=== PATIENT | female | born 1995 | race Caucasian/White ===

== ENCOUNTER → 2023-08-13 14:59 | Outpatient (REF) | payer OTHER, SELFPAY | LOC: MRI 3T 14:59 | PROVIDERS: ATTENDING PHYSICIAN Psychiatry & Neurology Neurology; FAMILY PHYSICIAN Internal Medicine; REFERRING PHYSICIAN Neurological Surgery | DX: R93.89 Abnormal findings on diagnostic imaging of other specified body structures (principal) | CPT/HCPCS: 70553; A9575 ==

== ENCOUNTER → 2023-08-21 09:00 | Outpatient (REF) | payer OTHER, SELFPAY | LOC: DHSLP 09:00 | PROVIDERS: ATTENDING PHYSICIAN Internal Medicine | DX: G47.30 Sleep apnea, unspecified (principal); R06.83 Snoring | CPT/HCPCS: 95800 ==

== ENCOUNTER 2023-08-22 06:34 | Outpatient (RCR) | payer OTHER, SELFPAY | END 2023-08-22 23:59 | disposition home or self-care (01) | LOC: RST 06:34 | PROVIDERS: ATTENDING PHYSICIAN Psychiatry & Neurology Neurology; FAMILY PHYSICIAN Internal Medicine | DX: R41.840 Attention and concentration deficit (principal); R41.841 Cognitive communication deficit; G91.9 Hydrocephalus, unspecified; Z73.6 Limitation of activities due to disability | CPT/HCPCS: 92507; 92523; 97167; 97530; 97537 ==

== ENCOUNTER 2023-09-18 07:06 | Outpatient (RCR) | payer OTHER, SELFPAY | END 2023-09-18 23:59 | disposition home or self-care (01) | LOC: RST 07:06 | PROVIDERS: ATTENDING PHYSICIAN Psychiatry & Neurology Neurology; FAMILY PHYSICIAN Internal Medicine | DX: R41.840 Attention and concentration deficit (principal); R41.841 Cognitive communication deficit; G91.9 Hydrocephalus, unspecified | CPT/HCPCS: 92507; 92523; 97167; 97530; 97537 ==

== ENCOUNTER 2023-10-09 08:04 | Outpatient (RCR) | payer OTHER, SELFPAY | END 2023-10-09 23:59 | disposition home or self-care (01) | LOC: RST 08:04 | PROVIDERS: ATTENDING PHYSICIAN Psychiatry & Neurology Neurology; FAMILY PHYSICIAN Internal Medicine | DX: G43.809 Other migraine, not intractable, without status migrainosus (principal); R41.840 Attention and concentration deficit; R41.841 Cognitive communication deficit; G91.9 Hydrocephalus, unspecified; Z73.6 Limitation of activities due to disability | CPT/HCPCS: 92507; 97112; 97162; 97530; 97537 ==

== ENCOUNTER → 2024-07-09 07:32 | Outpatient (REF) | payer OTHER, SELFPAY | LOC: EMG 07:32 | PROVIDERS: ATTENDING PHYSICIAN Internal Medicine Rheumatology; FAMILY PHYSICIAN Internal Medicine | DX: G56.21 Lesion of ulnar nerve, right upper limb (principal); R20.0 Anesthesia of skin | CPT/HCPCS: 95886; 95909 ==

== ENCOUNTER → 2024-08-03 08:08 | Outpatient (REF) | payer OTHER, SELFPAY | LOC: RAD 08:08 | PROVIDERS: ATTENDING PHYSICIAN Internal Medicine Rheumatology; FAMILY PHYSICIAN Internal Medicine | DX: M19.90 Unspecified osteoarthritis, unspecified site (principal) | CPT/HCPCS: 73110 ==

== ENCOUNTER → 2024-10-07 07:04 | Outpatient (REF) | payer OTHER, SELFPAY | LOC: PAVMRI 07:04 | PROVIDERS: ATTENDING PHYSICIAN Internal Medicine Rheumatology; FAMILY PHYSICIAN Internal Medicine | DX: M19.90 Unspecified osteoarthritis, unspecified site (principal) | CPT/HCPCS: 73221 ==